=== PATIENT | female | born 1965 | race Caucasian/White ===

== ENCOUNTER 2020-02-12 14:06 | Emergency (ER) | payer MEDICARE ==
--- NOTE | 2020-02-12 15:13 | CR ---
Right wrist: 4 views of the right wrist were obtained Comparison: No prior wrist exam. Findings: Osseous: Fracture is identified within the distal radius. Fracture shows mild posterior displacement distally as well as posterior impaction. Fracture is noted within the ulnar styloid process. No additional bony abnormality is appreciated. Soft tissues: Diffuse soft tissue swelling is noted. Impression: 1. Distal radial fracture as noted above. Diagnostic code #3
--- NOTE | 2020-02-12 15:49 | EDM.PDOC ---
ED HPI GENERAL MEDICAL PROBLEM - General Chief Complaint: Upper Extremity Injury/Pain Stated Complaint: RT WRIST INJURY Time Seen by Provider: 02/12/20 15:15 - History of Present Illness INITIAL COMMENTS - FREE TEXT/NARRATIVE: 54-year-old female presents the emergency room with right arm pain. Shortly before arrival the patient was ice skating. She has an ice skating in 15 years. Her skate slipped out from underneath her and she fell backwards on an outstretched arm. Patient denies any other injury associated with this most unfortunate event. Patient denies significant medical problems however she is a smoker. Right Wrist Pain Score (Numeric/FACES): 9 - Related Data Allergies Allergy/AdvReac Type Severity Reaction Status Date / Time aspartame Allergy Cannot Verified 02/12/20 14:29 Remember codeine Allergy Cannot Verified 02/12/20 14:29 Remember generic medications Allergy Other Uncoded 02/12/20 14:29 Home Meds: Home Meds Acetaminophen/HYDROcodone [[place] 325-5 MG] 1 - 2 tab PO Q6H PRN #20 tablet 02/12/20 [Rx] Past Medical History Cardiovascular History: Reports: Heart Murmur Psychiatric History: Reports: Anxiety, PTSD Social & Family History - Tobacco Use Tobacco Use Status *Q: Unknown Ever Used Tobacco - Caffeine Use Caffeine Use: Reports: None - Recreational Drug Use Recreational Drug Use: No Review of Systems - Review of Systems Review Of Systems: See Below Constitutional: Reports: No Symptoms Respiratory: Reports: No Symptoms Cardiovascular: Reports: No Symptoms GI/Abdominal: Reports: No Symptoms Musculoskeletal: Reports: Other (See history of present illness) Neurological: Reports: No Symptoms ED EXAM, GENERAL - Physical Exam Exam: See Below Exam Limited By: No Limitations General Appearance: Alert, No Apparent Distress (She has discomfort with any sort of activity with this upper extremity) Head: Atraumatic, Normocephalic Neck: Normal Inspection, Supple, Non-Tender, Full Range of Motion Respiratory/Chest: No Respiratory Distress, Lungs Clear, Normal Breath Sounds Cardiovascular: Regular Rate, Rhythm, No Edema, No Murmur Extremities: Other ED TRAUMA EXTREMITY PROCEDURES - Splinting Right Upper Extremity Splint Site: r fore arm Pre-Procedure NV Status: Normal Post-Procedure NV Status: Normal Splint Material: Fiberglass Splint Design: Sugar Tong Applied & Form Fitted By: Provider, Nurse Provider Post-Splint Application NV Check: NV Status Normal Complications: No Progress/Comments: [place] better after the splint was applied we will put her in a sling to help with this Course - Vital Signs Last Recorded V/S: Last Vital Signs Temp 36.1 C 02/12/20 14:30 Pulse 70 02/12/20 14:30 Resp 16 02/12/20 14:30 BP 114/70 02/12/20 14:30 Pulse Ox 99 02/12/20 14:30 - Re-Assessments/Exams Free Text/Narrative Re-Assessment/Exam: 02/12/20 16:32 X-ray shows a dorsally angulated, approximately 20 to 25 degrees, and minimally impacted distal radius fracture with an associated ulnar styloid fracture. Case discussed with Dr. Hatch, on-call orthopedic surgeon for bone and joint. He was contacted through [facility] in [place] 1 call. His recommendation is a sugar tong splint and a sling. And then call either the [facility] or Dr. Agustin's office here for follow-up on Friday or Friday. Departure - Departure Time of Disposition: 16:38 Disposition: Home, Self-Care 01 Clinical Impression: Closed fracture of right distal radius - Discharge Information Referrals: Nila Cm NP [Primary Care Provider] - Wilber Agustin MD [Physician] - Addison Hatch MD [Ordering Only Provider] - Forms: ED Department Discharge Additional Instructions: Return to the emergency room with any questions problems or worsening symptoms. Friday morning call Dr. Agustin here in [place], or Dr. Hatch at the [facility] in [place]. You should be seen on Friday or Friday. Tylenol for discomfort. I am also giving you some [place], or hydrocodone acetaminophen. Use this for the more severe pain however keep in mind that this medication can cause constipation so take a good stool softener and more importantly allow 12+ hours after using that medication before driving or returning to work. So watch your total Tylenol intake the pain pills all have 325 mg of Tylenol at home and your daily Tylenol intake should not exceed 4000 mg. Sepsis Event Note (ED) - Evaluation Sepsis Screening Result: No Definite Risk - Focused Exam Vital Signs: Vital Signs Temp Pulse Resp BP Pulse Ox 02/12/20 14:30 36.1 C 70 16 114/70 99
== END 2020-02-12 17:04 | disposition home or self-care (01) ==
LOC: JD.ED 14:06
DX: S52.501A Unspecified fracture of the lower end of right radius, initial encounter for closed fracture (principal); S52.611A Displaced fracture of right ulna styloid process, initial encounter for closed fracture; Z88.5 Allergy status to narcotic agent; Z88.8 Allergy status to other drugs, medicaments and biological substances; V00.211A Fall from ice-skates, initial encounter
CPT/HCPCS: 29125; 73110-26-RT; 73110-RT; 99283; 99283-25